=== PATIENT | female | born 1955 | race Caucasian/White ===

== ENCOUNTER 2017-02-16 20:37 | Emergency (ER) | payer MEDICARE, MEDICAID ==
[~2017-02-16 20:37] MED LIST: AMIT24CA5 PO; ATOR40TA49 PO; BUPR150T3 PO; FLOR250C PO; GABA400 PO; GAS-125C7 PO; GEMF600 PO; IBUP400T20 PO; ICOS1CAP; INSU100V2 SQ; LAC-12LO5; LANTUSP SQ; LEVO100T4 PO; LORA-392 PO; LORA10TA PO; MULT1TAB39 PO; NAME10TA PO; OXYBXL10 PO; POLY255S PO; PRIN5TAB PO; RISP1 PO; SERT100 PO; SM M PO; VITA500T83 PO
[2017-02-16 20:47] VITALS: BP 175/78; PULSE 80; RESP 16; TEMP 98.9; O2SAT 95
--- NOTE | 2017-02-16 21:16 | PD ---
HPI Chief Complaint: Hyperglycemia Time Seen by Provider: 20:47 Travel History International Travel<30 days: No Contact w/Intl Traveler<30days: No Traveled to known affect area: No History of Present Illness HPI 61yo F with PMH of DM, hydrocephalus s/p MICROBIAL SPECIALIST shunt, dementia AAOx2 at baseline was sent by [facility] for being found unresponsive for 2-3 minutes. When [facility] arrived, pt was responsive and at baseline. Pt found to be hyperglycemic with blood glucose in the 400s and given 16 units of insulin there. Pt is AAOx2 here with no signs of trauma. Pt denies any fever, headache , chest pain, sob, n/v, abdominal pain, focal weakness or numbness. PFSH Past Medical History Arthritis: Yes Asthma: Yes Autoimmune Disease: No Blood Disorders: No Bipolar Disorder: Yes Anxiety: Yes Depression: Yes Heart Rhythm Problems: Yes (SVT) Cancer: No Cardiovascular Problems: Yes High Cholesterol: Yes Chemotherapy: No Chest Pain: No Congestive Heart Failure: No COPD: No Cerebrovascular Accident: Yes Dementia: Yes Diabetes: Yes Patient Takes Glucophage: No Diminished Hearing: No Endocrine: Yes (insulin dependant diabetes) Gastrointestinal Disorders: Yes (GASTROPARESIS) GERD: Yes Glaucoma: No Genitourinary: No Headaches: No Hepatitis: No Hiatal Hernia: Yes Hypertension: Yes Immune Disorder: No Kidney Stones: No Medical other: Yes (HYPOTYROID) Musculoskeletal: Yes (HERNIATED DISCS) Neurologic: Yes (STATES CMPND SKULL FX AGE 9, SHUNT) Psychiatric: Yes (BIPOLAR) Reproductive: Yes (hx endometriosis tx with hysterectomy age 21) Respiratory: No Immunizations Current: Yes Migraines: No Myocardial Infarction: No Radiation Therapy: No Renal Failure: No Seizures: No Sickle Cell Disease: No Sleep Apnea: No Thyroid Disease: Yes Menopausal: Yes Past Surgical History Abdominal Surgery: Yes AICD: No Appendectomy: Yes Arteriovenous Shunt: No Cardiac Surgery: No Section: Yes Cholecystectomy: No Ear Surgery: No Endocrine Surgery: No Eye Surgery: No Genitourinary Surgery: No Gynecologic Surgery: Yes (hysterectomy age 21) Hysterectomy: Yes Insulin Pump: No Joint Replacement: No Neurologic Surgery: No Oral Surgery: No Pacemaker: No Thoracic Surgery: No Other Surgery: Yes (PT STATES THEY DRAINED FLUID OUT HER SKULL) Family History Family Myocardial Infarction: Yes Social History Alcohol Use: No Tobacco Use: Yes (1/2 PPD) Substance Use: No Allergies-Medications (Allergen,Severity, Reaction): Coded Allergies: Penicillin (Verified Allergy, Severe, 02/16/17) 12/21/13 NOT DOCUMENTED ON LATEST DEC FROM LONG TERM 05/15/14 mar from [facility] [place] Reported Meds & Prescriptions Reported Meds & Active Scripts Active Reported Zoloft (Sertraline HCl) 100 Mg Tab 200 Mg PO HS Wellbutrin Xl 24 HR (Bupropion HCl) 150 Mg Tab 150 Mg PO DAILY Vitamin C (Ascorbic Acid) 500 Mg Cap 500 Mg PO BID Vascepa (Icosapent) 1 Gm Cap 2 Gm PO BID Risperidone 2 Mg Tab 2 Mg PO HS Risperidone 1 Mg Tab 1 Mg PO DAILY Novolin R Inj (Insulin Human Regular) 1,000 Unit/10 Ml Vial 0 SQ DIRECTED Sliding Scale As Directed. Novolin R Inj (Insulin Human Regular) 100 Unit/Ml Inj 8 SQ BID Neurontin (Gabapentin) 400 Mg Cap 400 Mg PO HS Namenda Xr (Memantine) 28 Mg Caper 28 Mg PO DAILY Miralax Powder (Polyethylene Glycol 3350 Powder) 17 Gm Powd 17 Gm PO DAILY Mix and dissolve one measuring cap-ful (17 grams) in water or juice. Melatonin 3 Mg Cap 2 Cap PO HS Lopid (Gemfibrozil) 600 Mg Tab 600 Mg PO BIDAC Take 30 minutes prior to breakfast and dinner Lisinopril 5 Mg Tab 5 Mg PO DAILY Lipitor (Atorvastatin Calcium) 40 Mg Tab 40 Mg PO HS Linzess (Linaclotide) 145 Mcg Cap 145 Mcg PO DAILY Levothyroxine (Levothyroxine Sodium) 100 Mcg Tab 100 Mcg PO DAILY Lantus Inj (Insulin Glargine) 1,000 Unit/10 Ml Vial 85 Units SQ AC BREAKFAST Lac-Hydrin (Lactic Acid (Ammonium Lactate)) 12% Lotn 1 Applic TOPICAL BID Ibuprofen 400 Mg Tab 400 Mg PO Q4H PRN Gas-X Prevention (Wutpa-R-Jvlqwcxhltudn) 1 Cap 1 Cap PO DAILY Ditropan XL 24 HR (Oxybutynin Chloride) 10 Mg Tab 10 Mg PO DAILY Claritin (Loratadine) 10 Mg Cap 10 Mg PO DAILY Ativan (Lorazepam) 0.5 Mg Tab 0.5 Mg PO BID PRN Review of Systems Except as stated in HPI: all other systems reviewed are Neg Physical Exam Narrative GENERAL: 61yo F not in distress. SKIN: Focused skin assessment warm/dry. HEAD: Atraumatic. Normocephalic. EYES: Pupils equal and round at 3mm bilaterally. No scleral icterus. No injection or drainage. ENT: No nasal bleeding or discharge. Mucous membranes pink and moist. NECK: Trachea midline. No JVD. CARDIOVASCULAR: Regular rate and rhythm. No murmur appreciated. RESPIRATORY: No accessory muscle use. Clear to auscultation. Breath sounds equal bilaterally. GASTROINTESTINAL: Abdomen soft, non-tender, nondistended. No rebound tenderness or guarding. MUSCULOSKELETAL: No obvious deformities. No clubbing. No cyanosis. Mild lower ext edema. NEUROLOGICAL: Awake and alert. AAOx2. No obvious cranial nerve deficits. Motor grossly within normal limits. Normal speech. PSYCHIATRIC: Appropriate mood and affect; insight and judgment normal. Data Data Last Documented VS Vital Signs Date Time Temp Pulse Resp B/P Pulse Ox O2 Delivery O2 Flow Rate FiO2 02/17/17 09:36 69 20 131/62 98 02/16/17 20:47 98.9 Orders Complete Blood Count With Diff (02/16/17 20:57) Basic Metabolic Panel (Bmp) (02/16/17 20:57) Beta Hydroxybutyrate (Acetone) (02/16/17 20:57) Urinalysis - C+S If Indicated (02/16/17 20:57) Electrocardiogram (02/16/17 ) Cath For Specimen (02/16/17 21:24) Insulin Human Regular Inj (Novolin R Inj (02/16/17 22:30) Blood Glucose (02/16/17 22:50) Labs Laboratory Tests Test 02/16/17 21:05 White Blood Count 7.5 TH/MM3 Red Blood Count 3.95 MIL/MM3 Hemoglobin 12.4 GM/DL Hematocrit 36.7 % Mean Corpuscular Volume 93.1 FL Mean Corpuscular Hemoglobin 31.4 PG Mean Corpuscular Hemoglobin 33.7 % Concent Red Cell Distribution Width 13.2 % Platelet Count 233 TH/MM3 Mean Platelet Volume 9.0 FL Neutrophils (%) (Auto) 59.0 % Lymphocytes (%) (Auto) 31.5 % Monocytes (%) (Auto) 7.4 % Eosinophils (%) (Auto) 1.7 % Basophils (%) (Auto) 0.4 % Neutrophils # (Auto) 4.4 TH/MM3 Lymphocytes # (Auto) 2.4 TH/MM3 Monocytes # (Auto) 0.6 TH/MM3 Eosinophils # (Auto) 0.1 TH/MM3 Basophils # (Auto) 0.0 TH/MM3 CBC Comment DIFF FINAL Differential Comment Urine Color LIGHT-YELLOW Urine Turbidity CLEAR Urine pH 5.5 Urine Specific [place] 1.018 Urine Protein NEG mg/dL Urine Glucose (UA) 1000 mg/dL Urine Ketones NEG mg/dL Urine Occult Blood NEG Urine Nitrite NEG Urine Bilirubin NEG Urine Urobilinogen LESS THAN 2.0 MG/DL Urine Leukocyte Esterase NEG Urine RBC LESS THAN 1 /hpf Urine WBC 1 /hpf Urine Squamous Epithelial <1 /hpf Cells Microscopic Urinalysis Comment CULT NOT INDICATED Sodium Level 137 MEQ/L Potassium Level 3.9 MEQ/L Chloride Level 100 MEQ/L Carbon Dioxide Level 29.5 MEQ/L Anion Gap 8 MEQ/L Blood Urea Nitrogen 16 MG/DL Creatinine 1.01 MG/DL Estimat Glomerular Filtration 55 ML/MIN Rate Random Glucose 404 MG/DL Calcium Level 9.6 MG/DL B-Hydroxybutyrate 0.14 MMOL/L MDM Medical Decision Making Medical Screen Exam Complete: Yes Emergency Medical Condition: Yes Interpretation(s) EKG: NSR 78bpm. Normal axis. No ST segment elevation or depression. Differential Diagnosis Hyperglycemia vs. electrolyte abnormality vs. pt may have been sleeping Narrative Course 61yo F not in distress sent by [facility] because she was found to be unresponsive. However, pt was normal when [facility] arrive and does not appear altered in the ED. Pt is AAOx2 and has no focal neurologic deficit. Pt is afebrile, mildly hypertensive here. Blood glucose is elevated at 416 so will do hyperglycemia work up. Labs reviewed, no leukocytosis. Glucose 404. CO2 29.5. No increased anion gap. Normal b-Hydroxybutyrate. UA showed no leukocyte or nitrite. Daughter is at bedside and states she is normal to her. She does have very deep sleeps and may be sleeping when they found her unresponsive. Pt given 8 units of regular insulin. Repeat glucose 244. Pt is well appearing and wants to go home. Return precautions given. Diagnosis Primary Impression: Hyperglycemia Patient Instructions: General Instructions Departure Forms: Tests/Procedures Additional Instructions: Please follow up with your PMD in 3-7 days. Return to the ED if symptoms worsen. Med/Other Pt SpecificInfo: No Change to Meds Disposition: 01 DISCHARGE HOME Condition: Stable Palak Srinivasan DO Feb 16, 2017 21:16
[2017-02-16 21:26] LABS: AUTOMATED NEUTROPHIL # 4.4 TH/MM3 (1.8-7.7); BASOPHIL % 0.4 % (0.0-2.0); EOSINOPHIL # 0.1 TH/MM3 (0-0.4); EOSINOPHIL % 1.7 % (0.0-4.0); HEMATOCRIT 36.7 % (35.0-46.0); HEMO FLAGS DIFF FINAL; LYMPH % 31.5 % (9.0-44.0); LYMPHOCYTE # 2.4 TH/MM3 (1.0-4.8); MEAN CELL VOLUME 93.1 FL (80.0-100.0); MEAN CORPUSCULAR HEMOGLOBIN 31.4 PG (27.0-34.0); MEAN CORPUSCULAR HGB CONC 33.7 % (32.0-36.0); MONO % 7.4 % (0.0-8.0); PLATELET COUNT 233 TH/MM3 (150-450); RED BLOOD COUNT 3.95 MIL/MM3 (4.00-5.30); RED CELL DISTRIBUTION WIDTH 13.2 % (11.6-17.2); WHITE BLOOD COUNT 7.5 TH/MM3 (4.0-11.0)
[2017-02-16 21:38] LABS: BLOOD, URINE NEG (NEG); GLUCOSE,URINE 1000 mg/dL (NEG); KETONE, URINE NEG (NEG); NITRITE,URINE NEG (NEG); PH, URINE 5.5 (5.0-8.5); SQUAMOUS EPITHELIAL CELL URINE <1 /hpf (0-5); URINE COLOR LIGHT-YELLOW (YELLW/STRAW)
[2017-02-16 21:42] LABS: COMMENT (UR) CULT NOT INDICATED; CULTURE IF INDICATED CULT NOT INDICATED
[2017-02-16 22:03] LABS: BETA-HYDROXYBUTYRATE 0.14 MMOL/L (0.00-0.39); BICARBONATE 29.5 MEQ/L (21.0-32.0); POTASSIUM 3.9 MEQ/L (3.5-5.1)
[2017-02-16] MEDS ORDERED: INSULIN HUMAN REGULAR 1,000 UNITS/10 ML VIAL SQ ONE (22:30)
[2017-02-16] MEDS ORDERED: LORA-392 PO (22:46)
[2017-02-16] MEDS ORDERED: ZOLO100T PO (23:04)
[2017-02-16] MEDS ORDERED: ICOS1CAP PO (23:04)
[2017-02-16] MEDS ORDERED: OXYBXL10 PO (23:04)
[2017-02-16] MEDS ORDERED: LAC-12LO3 TOPICAL (23:04)
[2017-02-16] MEDS ORDERED: NOVORP2 SQ (23:04)
[2017-02-16] MEDS ORDERED: MELA3CAP PO (23:04)
[2017-02-16] MEDS ORDERED: LEVO100T5 PO (23:04)
[2017-02-16] MEDS ORDERED: CLAR10CA3 PO (23:04)
[2017-02-16] MEDS ORDERED: LIPI40TA PO (23:04)
[2017-02-16] MEDS ORDERED: MIRA33504 PO (23:04)
[2017-02-16] MEDS ORDERED: NEUR400C PO (23:04)
[2017-02-16] MEDS ORDERED: ASCO500C PO (23:04)
[2017-02-16] MEDS ORDERED: NRDRIP SQ (23:04)
[2017-02-16] MEDS ORDERED: MEMA28CA PO (23:04)
[2017-02-16] MEDS ORDERED: LANTUS2P SQ (23:04)
[2017-02-16] MEDS ORDERED: BUPR150XL PO (23:04)
[2017-02-16] MEDS ORDERED: RISP1TAB2 PO (23:04)
[2017-02-16] MEDS ORDERED: LISI-519 PO (23:04)
[2017-02-16] MEDS ORDERED: LINA145C PO (23:04)
[2017-02-16] MEDS ORDERED: GEMF600 PO (23:04)
[2017-02-16] MEDS ORDERED: IBUP400T20 PO (23:04)
[2017-02-16] MEDS ORDERED: [UNRECOGNIZED DRUG - CODE] PO (23:04)
[2017-02-16] MEDS ORDERED: RISP2TAB2 PO (23:04)
[2017-02-16 23:05] VITALS: BP 157/79; PULSE 79; RESP 16; O2SAT 95
[2017-02-17 03:23] VITALS: BP 145/71; PULSE 75; RESP 16; O2SAT 95
[2017-02-17 09:36] VITALS: BP 131/62; PULSE 69; RESP 20; O2SAT 98
--- NOTE | 2017-02-17 22:32 | EKG ---
Date Performed: 02/16/2017 Time Performed: 21:38:17 PTAGE: 61 years EKG: Sinus rhythm NORMAL ECG PREVIOUS TRACING : 12/22/2013 06.36 Compared to prior tracing no significant change DOCTOR: Tommie Wilson Interpretating Date/Time 02/17/2017 22:31:43
== END 2017-02-17 12:15 | disposition home or self-care (01) ==
LOC: NEPE 20:37 → NEPD 02-17 12:15
DX: E11.65 Type 2 diabetes mellitus with hyperglycemia (principal); I47.1 Supraventricular tachycardia; E78.00 Pure hypercholesterolemia, unspecified; J45.909 Unspecified asthma, uncomplicated; I10 Essential (primary) hypertension; E03.9 Hypothyroidism, unspecified; F17.210 Nicotine dependence, cigarettes, uncomplicated
CPT/HCPCS: 80048; 81001; 82010; 85025; 93005; 96372; 99285; J1815; P9612